=== PATIENT | male | born 1985 | race African-American/Black ===

== ENCOUNTER 2016-09-07 04:27 | Day surgery (SDC) | payer BC ==
[~2016-09-07 04:27] MED LIST: IBU800 PO; NORV5 PO; PROZAC PO
== END 2016-09-07 08:21 | disposition home or self-care (01) ==
LOC: SDC 04:27
PROVIDERS: Orthopaedic Surgery
PROC: 3E0R3BZ Introduction of Anesthetic Agent into Spinal Canal, Percutaneous Approach (ICD-10-PCS; 2016-09-07)
PROC: 3E0R33Z Introduction of Anti-inflammatory into Spinal Canal, Percutaneous Approach (ICD-10-PCS; principal; 2016-09-07 07:15)
DX: M54.12 Radiculopathy, cervical region (principal); M54.2 Cervicalgia; F32.9 Major depressive disorder, single episode, unspecified; L30.9 Dermatitis, unspecified; L40.9 Psoriasis, unspecified; F17.210 Nicotine dependence, cigarettes, uncomplicated; I10 Essential (primary) hypertension; M48.02 Spinal stenosis, cervical region; G43.909 Migraine, unspecified, not intractable, without status migrainosus; Z98.890 Other specified postprocedural states; Z87.442 Personal history of urinary calculi; Z79.899 Other long term (current) drug therapy; Z79.51 Long term (current) use of inhaled steroids
CPT/HCPCS: J1040; J2250; J3010; Q9967